=== PATIENT | female | born 1940 | race Caucasian/White ===

== ENCOUNTER 2016-11-02 16:17 | Emergency (ER) | payer MEDICARE ==
[~2016-11-02] VITALS: Ht 165.1 cm; Wt 97.0 kg
[~2016-11-02 16:17] MED LIST: ALLOPURINOL300 MG PO; CEPHALEXIN500 MG OR; CIPROFLOXACN500 MG PO; CITALOPRAM20 MG PO; ESTRADIOL0.1 MG; FISH OIL1000 MG; LEVOTHROID125 MCG; LISINOP/HCTZ1 TA1 PO; PROAIR HFA IN; ROBITUSSIN AC10 ML PO; SIMVASTATIN40 MG PO
[2016-11-02] MEDS ORDERED: FUROSEMIDE20 MG PO (16:48)
[2016-11-02] MEDS ORDERED: ESTRADIOL1 MG PO (16:49)
[2016-11-02] MEDS ORDERED: CITALOPRAM40 MG PO (16:49)
[2016-11-02] MEDS ORDERED: TRAMADOL HCL50 MG PO (16:49)
[2016-11-02] MEDS ORDERED: LEVOTHYROXIN125 MC1 PO (16:50)
[2016-11-02] MEDS ORDERED: ZYLOPRIM300 MG PO (16:50)
[2016-11-02] MEDS ORDERED: TRAMADOL HYDROC50 MG PO (17:34)
[2016-11-02] MEDS ORDERED: PREDNISONE50 MG PO (17:34)
[2016-11-02 17:49] VITALS: BP 113/60
== END 2016-11-02 17:49 | disposition home or self-care (01) ==
LOC: ED 16:17
DX: S83.91XA Sprain of unspecified site of right knee, initial encounter (principal); M17.11 Unilateral primary osteoarthritis, right knee; M25.461 Effusion, right knee; X58.XXXA Exposure to other specified factors, initial encounter; Y93.89 Activity, other specified; Y92.009 Unspecified place in unspecified non-institutional (private) residence as the place of occurrence of the external cause